=== PATIENT | female | born 1955 | race Caucasian/White ===

== ENCOUNTER 2018-06-10 22:54 | Inpatient (IN) | payer SELFPAY ==
[2018-06-11 00:41] LABS: Arterial Blood Carboxyhemoglob 0.9 % (0-1.5); Blood Gas Oxyhemoglobin 94.9 % (94-97); Blood O2 Saturation 96.8 % (92-98.5)
[2018-06-11 00:48] LABS: Absolute Lymphocytes (CBC) 1.2 K/uL (0.7-4.9); Absolute Monocytes 0.6 K/uL (0.1-1.3); Absolute Neutrophil 4.5 K/uL (1.8-8.0); Basophils % 0.4 % (0-1.3); Eosinophils % 0.5 % (0-4.4); Hematocrit 46.1 % (36.0-45.0); Lymphocytes % 18.4 % (15.3-44.8); MCH 27.5 pg (27.0-35.0); MCV 80.6 fL (80-100); MPV 8.8 fL (7.6-11.3); Monocytes % 8.9 % (3.3-12.3); RBC Red Blood Cell Count 5.72 M/uL (3.86-4.86)
[2018-06-11 00:52] LABS: Protime INR 1.2
[2018-06-11] MEDS ORDERED: NA CHLORIDE 0.9% 1,000 ML ONE ×2 (01:00→03:43)
[2018-06-11 01:05] LABS: ALT/SGPT 16 U/L (12-78); AST/SGOT 16 U/L (15-37); Albumin 3.2 g/dL (3.4-5.0); Alkaline Phosphatase 88 U/L (45-117); BUN Blood Urea Nitrogen 15 mg/dL (7-18); Bicarbonate 25 mmol/L (21-32); Bilirubin Direct 0.4 mg/dL (0-0.2); Bilirubin Total 1.3 mg/dL (0.2-1.0); CKMB Creatine Kinase MB < 1.0 ng/mL (0.3-3.6); Creatine Phosphokinase 22 U/L (26-192); Glucose Level 98 mg/dL (74-106); Lipase 200 U/L (73-393); Potassium 3.5 mmol/L (3.5-5.1); Protein, Total 7.9 g/dL (6.4-8.2); Sodium Level 137 mmol/L (136-145); Troponin (Emerg Dept Use Only) < 0.02 ng/mL (0.0-0.045)
[2018-06-11] MEDS ORDERED: ONDANSETRON 4 MG/2 ML VIAL ONE (02:01)
--- NOTE | 2018-06-11 05:19 | EDPHYS ---
Physician Documentation [facility] Name: Sherita Mcgovern Age: 63 yrs Sex: Female : 1955 Arrival Date: 06/10/2018 Time: 23:09 Bed 17 Private MD: ED Physician Anthony Moctezuma HPI: 06/11 01:41 This 63 yrs old Female presents to ER via EMS with unknown complaint. pkl 01:41 The patient presents to the emergency department with nausea, vomiting. Onset: The pkl symptoms/episode began/occurred 2 week(s) ago. Associated signs and symptoms: Pertinent positives: abdominal pain, dizziness, constipation and not eating well. The patient has not recently seen a physician, seen at [facility] ER 1 week ago for same complaints. Said she is not any better. Historical: - Allergies: 06/10 23:31 Levothyroxine Sodium; bb - Home Meds: 23:31 None [Active]; bb - PMHx: 23:31 borderline diabetes; bb - PSHx: 23:31 Gastric Bypass; varicose vein; Tubal ligation; Hernia repair; bb - Immunization history:: Adult Immunizations up to date. - Social history:: Smoking status: Patient/guardian denies using tobacco, Patient/guardian denies using alcohol, street drugs. - Ebola Screening: : No symptoms or risks identified at this time. ROS: 06/11 01:41 Eyes: Negative for injury, pain, redness, and discharge, ENT: Negative for injury, pkl pain, and discharge, Neck: Negative for injury, pain, and swelling, Cardiovascular: Negative for chest pain, palpitations, and edema, Respiratory: Negative for shortness of breath, cough, wheezing, and pleuritic chest pain. Abdomen/GI: Positive for nausea and vomiting, constipation. Back: Negative for acute changes. : Negative for urinary symptoms. MS/extremity: Negative for acute changes. Skin: Negative for rash. Neuro: Negative for altered mental status. Exam: 01:41 Head/Face: Normocephalic, atraumatic. Eyes: Pupils equal round and reactive to light, pkl extra-ocular motions intact. Lids and lashes normal. Conjunctiva and sclera are non-icteric and not injected. Cornea within normal limits. Periorbital areas with no swelling, redness, or edema. ENT: Nares patent. No nasal discharge, no septal abnormalities noted. Tympanic membranes are normal and external auditory canals are clear. Oropharynx with no redness, swelling, or masses, exudates, or evidence of obstruction, uvula midline. Mucous membranes moist. Neck: Trachea midline, no thyromegaly or masses palpated, and no cervical lymphadenopathy. Supple, full range of motion without nuchal rigidity, or vertebral point tenderness. No Meningismus. Chest/axilla: Normal chest wall appearance and motion. Nontender with no deformity. No lesions are appreciated. Cardiovascular: Regular rate and rhythm with a normal S1 and S2. No gallops, murmurs, or rubs. Normal PMI, no JVD. No pulse deficits. Respiratory: Lungs have equal breath sounds bilaterally, clear to auscultation and percussion. No rales, rhonchi or wheezes noted. No increased work of breathing, no retractions or nasal flaring. 01:41 Abdomen/GI: Bowel sounds: normal, Palpation: abdomen is soft and non-tender, in all quadrants. 01:41 Back: Exam negative for acute changes. 01:41 : Exam negative for acute changes. 01:41 Musculoskeletal/extremity: Exam is negative for acute changes. 01:41 Skin: Exam negative for rash. 01:41 Neuro: Orientation: is normal, Mentation: is normal, Memory: is normal, Cranial nerves: grossly normal, Motor: is normal. Vital Signs: 06/10 23:25 BP 147 / 105; Pulse 66; Resp 20 S; Temp 95.8(O); Pulse Ox 100% on R/A; Weight 147.42 kg bb (R); Height 5 ft. 8 in. (172.72 cm) (R); Pain 0/10; 06/11 00:00 BP 126 / 68; Pulse 60; Resp 18; Temp 98; Pulse Ox 98% ; ea 00:26 BP 132 / 81; Pulse 60; Resp 18; Pulse Ox 98% ; ea 01:30 BP 110 / 50; Pulse 60; Resp 18; Pulse Ox 97% on R/A; ea 02:43 BP 109 / 69; Pulse 58; Resp 20; Pulse Ox 97% ; ea 03:55 BP 110 / 62; Pulse 60; Resp 18; Temp 98; Pulse Ox 98% on R/A; ea 04:00 BP 117 / 73; Pulse 50; Resp 18; Pulse Ox 98% ; ea 06:30 BP 135 / 58; Pulse 57; Resp 18; Pulse Ox 98% on R/A; Pain 0/10; ea 07:52 BP 136 / 84; Pulse 62; Resp 18; Temp 98.5; Pulse Ox 99% on R/A; Pain 0/10; ch 06/10 23:25 Body Mass Index 49.42 (147.42 kg, 172.72 cm) bb MDM: 00:48 Patient medically screened. [facility] 05:16 Data reviewed: vital signs, nurses notes, lab test result(s), EKG, radiologic studies, pkl CT scan, plain films. 05:18 Patient medically screened. pkl 06/11 00:28 Order name: T\T\S snw 06/11 00:28 Order name: Urine Culture snw 06/11 00:28 Order name: ABG; Complete Time: 00:46 snw 06/11 00:28 Order name: Basic Metabolic Panel snw 06/11 00:28 Order name: Blood Culture Adult (2) snw 06/11 00:28 Order name: CBC with Diff; Complete Time: 01:35 snw 06/11 00:28 Order name: Ckmb snw 06/11 00:28 Order name: CPK snw 06/11 00:28 Order name: Lactate; Complete Time: 02:28 snw 06/11 00:28 Order name: LFT's snw 06/11 00:28 Order name: Lipase snw 06/11 00:28 Order name: Procalcitonin; Complete Time: 02:28 snw 06/11 00:28 Order name: Protime (+inr); Complete Time: 01:35 snw 06/11 00:28 Order name: Ptt, Activated; Complete Time: 01:35 snw 06/11 00:28 Order name: Troponin (emerg Dept Use Only); Complete Time: 01:35 snw 06/11 00:28 Order name: Urine Microscopic Only snw 06/11 00:28 Order name: Chest Single View XRAY snw 06/11 00:29 Order name: Type and Screen; Complete Time: 04:36 EDMS 06/11 00:29 Order name: Urine Culture EDMS 06/11 00:29 Order name: Basic Metabolic Panel; Complete Time: 01:35 EDMS 06/11 00:29 Order name: CKMB Creatine Kinase MB; Complete Time: 01:35 EDMS 06/11 00:29 Order name: Creatine Phosphokinase; Complete Time: 01:35 EDMS 06/11 00:29 Order name: Liver (Hepatic) Function; Complete Time: 01:35 EDMS 06/11 00:29 Order name: Lipase; Complete Time: 01:35 EDMS 06/11 01:39 Order name: CT Abd/Pelvis - W/Contrast pkl 06/11 01:39 Order name: CT Head Brain wo Cont pkl 06/11 04:38 Order name: Urine Dipstick--Ancillary (enter results) ms 06/11 05:29 Order name: ABO/RH no charge EDMS 06/11 06:46 Order name: CDIFF ms 06/11 00:28 Order name: Cardiac monitoring; Complete Time: 01:26 snw 06/11 00:28 Order name: EKG - Nurse/Tech; Complete Time: 02:31 snw 06/11 00:28 Order name: IV Saline Lock - Large Bore; Complete Time: 02:51 snw 06/11 00:28 Order name: Labs collected and sent; Complete Time: 01:25 snw 06/11 00:28 Order name: O2 Per Protocol; Complete Time: 01:25 snw 06/11 00:28 Order name: O2 Sat Monitoring; Complete Time: 01:25 snw 06/11 00:28 Order name: Urine Dipstick-Ancillary (obtain specimen); Complete Time: 05:25 snw 06/11 01:39 Order name: EKG; Complete Time: 01:39 pkl Administered Medications: 00:57 Drug: NS 0.9% (30 ml/kg) 30 ml/kg Route: IV; Rate: bolus; Site: left antecubital; ea 07:04 Follow up: Response: No adverse reaction; IV Status: Completed infusion; IV Intake: ea 1000ml 02:45 Drug: Zofran 4 mg Route: IVP; Site: right upper arm; ea 03:30 Follow up: Response: No adverse reaction; Marked relief of symptoms ea 02:52 Drug: NS 0.9% 1000 ml Route: IV; Rate: 100 ml/hr; Site: right upper arm; ea 07:03 Follow up: Response: No adverse reaction; IV Status: Infusion continued upon admission ea Disposition: 06/11/18 05:18 Hospitalization ordered by Mary Santana for Inpatient Admission. Preliminary diagnosis is Persistent dizziness and vomiting. Acute weight loss. - Bed requested for Telemetry/MedSurg (Inpatient). - Status is Inpatient Admission. - Condition is Stable. - Problem is new. - Symptoms are unchanged. UTI on Admission? No Signatures: Dispatcher [employer] EDMS Scarlet Bellamy RN RN ch Lewis, Kimberly, RN RN kl Anderson, Corey, MD MD cha Lam, Pin, MD MD pkl Therrien, Shelly, TETRYL SCREEN OPERATOR-C TETRYL SCREEN OPERATOR-Csnw Arianna Branch RN Johana Connell RN RN ea Corrections: (The following items were deleted from the chart) 01:26 00:28 Accucheck ordered. snw cc 05:24 00:28 Austin ordered. snw ea 06:30 05:18 Hospitalization Ordered by Mary Santana MD for Inpatient Admission. Preliminary diagnosis is Persistent dizziness and vomiting. Acute weight loss. Bed requested for Telemetry/MedSurg (Inpatient). Status is Inpatient Admission. Condition is Stable. Problem is new. Symptoms are unchanged. UTI on Admission? No. pkl 08:30 06:30 06/11/2018 05:18 Hospitalization Ordered by Mary Santana MD for Inpatient Admission. Preliminary diagnosis is Persistent dizziness and vomiting. Acute weight loss. Bed requested for Telemetry/MedSurg (Inpatient). Status is Inpatient Admission. Condition is Stable. Problem is new. Symptoms are unchanged. UTI on Admission? No. kl
--- NOTE | 2018-06-11 05:19 | ER ---
Nurse's Notes [facility] Name: Sherita Mcgovern Age: 63 yrs Sex: Female : 1955 Arrival Date: 06/10/2018 Time: 23:09 Bed 17 Private MD: Diagnosis: Persistent dizziness and vomiting. Acute weight loss Presentation: 06/10 23:09 Presenting complaint: EMS states: they were toned out for report of pt having vertigo bb with vomiting x 2 weeks pt has lost 38 pounds over the last 2 weeks has not been able to hold down food or drink. Transition of care: patient was not received from another setting of care. Onset of symptoms was May 24, 2018. Risk Assessment: Do you want to hurt yourself or someone else? Patient reports no desire to harm self or others. Initial Sepsis Screen: Does the patient meet any 2 criteria? No. Patient's initial sepsis screen is negative. Does the patient have a suspected source of infection? No. Patient's initial sepsis screen is negative. Care prior to arrival: None. 23:09 Method Of Arrival: EMS: [facility] bb 23:09 Acuity: ARCENIO 3 bb 23:34 Note family reports pt has been having slurred speech. bb Historical: - Allergies: 23:31 Levothyroxine Sodium; bb - Home Meds: 23:31 None [Active]; bb - PMHx: 23:31 borderline diabetes; bb - PSHx: 23:31 Gastric Bypass; varicose vein; Tubal ligation; Hernia repair; bb - Immunization history:: Adult Immunizations up to date. - Social history:: Smoking status: Patient/guardian denies using tobacco, Patient/guardian denies using alcohol, street drugs. - Ebola Screening: : No symptoms or risks identified at this time. Screenin/09 00:24 Abuse screen: Denies threats or abuse. Nutritional screening: No deficits noted. ea Tuberculosis screening: No symptoms or risk factors identified. Fall Risk None identified. Assessment: 06/10 23:15 General: Appears uncomfortable, Behavior is calm, cooperative, appropriate for age. ea Pain: Denies pain. Neuro: Level of Consciousness is awake, alert, obeys commands, Oriented to person, place, time, situation. Cardiovascular: Heart tones S1 S2 present Patient's skin is warm and dry. Respiratory: Airway is patent Respiratory effort is even, unlabored, Respiratory pattern is regular, symmetrical, Breath sounds are clear bilaterally. GI: Abdomen is non-distended, Bowel sounds present X 4 quads. Parent/caregiver reports the patient having nausea, vomiting. : No signs and/or symptoms were reported regarding the genitourinary system. Derm: Skin is pink, warm \T\ dry. 06/11 00:24 Reassessment: Family member came out to ask what is waiting for and was told for a ao provider. VALARIE Lam was notified. No provider has been assigned to patient. 02:00 Reassessment: Patient and/or family updated on plan of care and expected duration. Pain ea level reassessed. Pt IV infiltrated, IV discontinued, bleeding controlled, pressure dressing applied, catheter intact. Charge nurse attempting to obtain IV site at this time. 02:38 Reassessment: Patient and/or family updated on plan of care and expected duration. Pain ea level reassessed. Patient is alert, oriented x 3, equal unlabored respirations, skin warm/dry/pink. primer supervisor at bedside attempting to obtain IV access. 03:07 Reassessment: Patient is alert, oriented x 3, equal unlabored respirations, skin ea warm/dry/pink. CT notified of pt finishing oral contrast. 04:05 Reassessment: Patient and/or family updated on plan of care and expected duration. Pain ea level reassessed. Patient is alert, oriented x 3, equal unlabored respirations, skin warm/dry/pink. 07:52 Reassessment: Patient appears in no apparent distress at this time. Patient and/or ch family updated on plan of care and expected duration. Pain level reassessed. Patient is alert, oriented x 3, equal unlabored respirations, skin warm/dry/pink. Vital Signs: 06/10 23:25 BP 147 / 105; Pulse 66; Resp 20 S; Temp 95.8(O); Pulse Ox 100% on R/A; Weight 147.42 kg bb (R); Height 5 ft. 8 in. (172.72 cm) (R); Pain 0/10; 06/11 00:00 BP 126 / 68; Pulse 60; Resp 18; Temp 98; Pulse Ox 98% ; ea 00:26 BP 132 / 81; Pulse 60; Resp 18; Pulse Ox 98% ; ea 01:30 BP 110 / 50; Pulse 60; Resp 18; Pulse Ox 97% on R/A; ea 02:43 BP 109 / 69; Pulse 58; Resp 20; Pulse Ox 97% ; ea 03:55 BP 110 / 62; Pulse 60; Resp 18; Temp 98; Pulse Ox 98% on R/A; ea 04:00 BP 117 / 73; Pulse 50; Resp 18; Pulse Ox 98% ; ea 06:30 BP 135 / 58; Pulse 57; Resp 18; Pulse Ox 98% on R/A; Pain 0/10; ea 07:52 BP 136 / 84; Pulse 62; Resp 18; Temp 98.5; Pulse Ox 99% on R/A; Pain 0/10; ch 06/10 23:25 Body Mass Index 49.42 (147.42 kg, 172.72 cm) bb ED Course: 06/10 23:09 Patient arrived in ED. am2 23:25 Arm band placed on Patient placed in an exam room, on a stretcher, on pulse oximetry. bb Family accompanied patient. 23:27 Triage completed. bb 23:32 Johana Almeida, RN is Primary Nurse. ea 06/11 00:04 Inserted saline lock: 20 gauge in left antecubital area, using aseptic technique. ao ,using aseptic technique. Ultrasound guided IV Blood collected. 00:24 Patient has correct armband on for positive identification. Bed in low position. Call ea light in reach. Side rails up X 1. Child being held by parent. 01:06 X-ray completed. Portable x-ray completed in exam room. Patient tolerated procedure kw well. 01:07 Chest Single View XRAY In Process Unspecified. EDMS 01:27 Anthony Moctezuma MD is Attending Physician. pkl 01:53 Note: Patient unable to drink oral contrast at this time due to nausea. Patient's nurse kw1 to administer nausea medication and will advise when patient is able to drink contrast.. 01:56 Note: No IV at this time.. kw1 02:00 IV discontinued, intact, bleeding controlled, No redness/swelling at site. Pressure ea dressing applied. 02:13 Note: No IV and patient still unable to drink oral contrast at this time due to nausea..[id number] 02:38 Inserted saline lock: 24 gauge in right upper arm, using aseptic technique. By Elaina SERRANO. ea 03:21 Radiology exam delayed due to Patient finished oral contrast at approx 0310. Has been kw1 experiencing nausea and has not been able to drink the contrast. Will scan at approx. 0430. 04:26 Radiology exam delayed due to Patient currently in restroom. Will transport for CT exam kw1 as soon as she is able to travel. 04:[address] via wheelchair. kw1 05:04 CT Head Brain wo Cont In Process Unspecified. EDMS 05:07 CT Abd/Pelvis - W/Contrast In Process Unspecified. EDMS 05:07 CT completed. Patient tolerated procedure well. Patient moved back from CT. kw1 05:17 Mary Santana MD is Hospitalizing Provider. pkl 05:25 Urine Culture Sent. ea 06:54 No provider procedures requiring assistance completed. Patient admitted, IV remains in ea place. 07:04 Report given to Scarlet SERRANO. ea Administered Medications: 00:57 Drug: NS 0.9% (30 ml/kg) 30 ml/kg Route: IV; Rate: bolus; Site: left antecubital; ea 07:04 Follow up: Response: No adverse reaction; IV Status: Completed infusion; IV Intake: ea 1000ml 02:45 Drug: Zofran 4 mg Route: IVP; Site: right upper arm; ea 03:30 Follow up: Response: No adverse reaction; Marked relief of symptoms ea 02:52 Drug: NS 0.9% 1000 ml Route: IV; Rate: 100 ml/hr; Site: right upper arm; ea 07:03 Follow up: Response: No adverse reaction; IV Status: Infusion continued upon admission ea Intake: 07:04 IV: 1000ml; Total: 1000ml. ea Outcome: 05:18 Decision to Hospitalize by Provider. pkl 07:02 Instructed on the need for admit. ea 07:53 Admitted to Med/surg accompanied by [facility], with chart, Report called to ALYSIA 07:53 Condition: stable 08:30 Patient left the ED. Signatures: Dispatcher [employer] Scarlet Domingo, RN Anthony Nation ch, MD MD pkl Ballard, Brenda, RN RN bb Whitley, Kimberlee kw Ortiz, Alex RN Maren Garcia Elena, RN RN ea Wilhelm, Kimberly kw1 Ruby Dickinson [id number]
[2018-06-11 05:50] LABS: Urine Blood 2+ (NEG); Urine Glucose NEGATIVE (NEG); Urine Protein 1+ (NEG); Urine pH 6.5 (5.0-7.0)
[2018-06-11 05:51] LABS: Urine Culture Reflex Order NOT NEEDED; Urine Mucus 1+ /HPF (NONE SEEN)
[2018-06-11 05:52] LABS: Urine Bacteria 20-50 /HPF (<20); Urine RBC <5 /HPF (NONE SEEN)
[2018-06-11] MEDS ORDERED: ACETAMINOPHEN 500 MG TAB PO PRN (06:13)
--- NOTE | 2018-06-11 06:45 | P.HP ---
Certification for Inpatient Patient admitted to: Inpatient With expected LOS: >2 Midnights Patient will require the following post-hospital care: None Practitioner: I am a practitioner with admitting privileges, knowledge of patient current condition, hospital course, and medical plan of care. Services: Services provided to patient in accordance with Admission requirements found in Title 42 Section 412.3 of the Code of Federal Regulations Patient History Date of Service: 06/11/18 Reason for admission: Patient with abdominal pain and nausea and vomiting History of Present Illness: Patient is a 63-year-old female who presents to the hospital with abdominal pain , nausea and vomiting, along with constipation. Patient has been feeling poorly for the last 2 weeks. Patient's clinical symptoms have been gradually worsening. Patient had vertigo and was seen in the emergency room around 2 weeks ago while she was visiting with her family members. At that time, she was felt to have vertigo. She was given a prescription but she was unable to get it filled. She states that her debit card was not working. Since that time she has not felt any better. She has not had a bowel movement within that time. She has taken multiple laxatives. She is not able to keep liquids down he either. She will need to be admitted to the hospital for further workup. There has also been a greater than 30 lb weight loss over the last few weeks. This will also need to be investigated. - Past Medical/Surgical History -: Hypothyroidism -: Diabetes type 2 -: Gastric bypass surgery -: Bilateral tubal ligation -: Hernia repair -: Varicose vein - Family History Father Family History: Reviewed- Non-Contributory - Social History Smoking Status: Never smoker Alcohol use: No CD- Drugs: No Review of Systems 10-point ROS is otherwise unremarkable Physical Examination - Vital Signs Temperature: 98 F Blood Pressure: 140/80 Pulse: 80 Respirations: 18 Pulse Ox (%): 96 - Physical Exam General: Alert, In no apparent distress, Oriented x3 HEENT: Atraumatic, Normocephalic Neck: Supple, 2+ carotid pulse no bruit, JVD not distended, No Thyromegaly Respiratory: Clear to auscultation bilaterally, Normal air movement Cardiovascular: Normal pulses, Regular rate/rhythm, Normal S1 S2 Gastrointestinal: Normal bowel sounds, Hypoactive, Soft and benign, Non- distended Musculoskeletal: No clubbing, No swelling Integumentary: No rashes Neurological: Normal gait, Normal speech, Normal strength at 5/5 x4 extr, Normal tone, Sensation intact, Cranial nerves 3-12 intact Lymphatics: No axilla or inguinal lymphadenopathy - Studies Laboratory Data (last 24 hrs) 06/11/18 00:34: PT 14.2 H, INR 1.20, APTT 32.6 06/11/18 00:34: WBC 6.3, Hgb 15.7 H, Hct 46.1 H, Plt Count 211 06/11/18 00:34: Sodium 137, Potassium 3.5, BUN 15, Creatinine 0.70, Glucose 98, Total Bilirubin 1.3 H, AST 16, ALT 16, Alkaline Phosphatase 88, Lipase 200 Assessment & Plan - Problems (Diagnosis) (1) Vertigo Current Visit: Yes Status: Acute (2) Abdominal pain Current Visit: Yes Status: Acute (3) Nausea and vomiting Current Visit: Yes Status: Acute (4) Constipation Current Visit: Yes Status: Acute (5) Hypothyroidism Current Visit: Yes Status: Acute (6) Type 2 diabetes mellitus Current Visit: Yes Status: Acute - Plan 1. Continue with IV hydration 2. Continue with IV antibiotics 3. Continue with pain control 4. NPO 5. GI consultation; colonoscopy in the next few weeks 6. Serial H&H, and we will monitor CBC, BMP, LFTs and lipase along with electrolytes. 7. Will go ahead and start antiemetics and meclizine 8. CT of the abdomen did not reveal any abnormal findings except for constipation and cholelithiasis 9. GI and DVT prophylaxis Discharge Plan: Home Plan to discharge in: Greater than 2 days - Advance Directives Does patient have a Living Will: No Does patient have a Durable POA for Healthcare: No - Code Status/Comfort Care Code Status Assessed: Yes Code Status: Full Code Critical Care: No Time Spent Managing PTS Care (In Minutes): 50
[2018-06-11] MEDS: ONDANSETRON 4 MG/2 ML VIAL IV PRN ×2 (06:49→21:25)
[2018-06-11] MEDS ORDERED: NA CHLORIDE 0.9% 1,000 ML IV SCH (07:00)
--- NOTE | 2018-06-11 07:33 | EKG ---
Test Date: 2018-06-11 Test Time: 02:26:26 [employer] Liv[employer] Farmer: VINOD MEASUREMENT RESULTS: Intervals: Rate: 54 MS: 210 QRSD: 100 QT: 428 QTc: 405 Rodney: P: 20 MS: 210 QRS: -8 T: 19 INTERPRETIVE STATEMENTS: Sinus bradycardia with 1st degree AV block Otherwise normal ECG Compared to ECG 03/23/1999 02:10:00 First degree AV block now present Sinus rhythm no longer present Sinus arrhythmia no longer present Electronically Signed On 06-11-18 07:33:06 CDT by Andres Schuster
--- NOTE | 2018-06-11 08:58 | RAD REPORT ---
EXAM DESCRIPTION: RAD - Chest Single View - 06/11/2018 1:07 am CLINICAL HISTORY: Weight loss, shortness of breath, vomiting COMPARISON: None. TECHNIQUE: AP portable chest image was obtained 0053 hours . FINDINGS: Lungs are clear. Heart and vasculature are normal. No measurable pleural effusion and no p neumothorax. No acute bony abnormality seen. No acute aortic finding. No suspicion for mediastinal or hilar mass. IMPRESSION: No acute cardiopulmonary process.
[2018-06-11] MEDS: Levofloxacin500mg IV 500 MG/100 ML BAG IV SCH (09:02)
[2018-06-11] MEDS: METRONIDAZOLE 500mg IVPB 500 MG/100 ML BAG IV SCH ×2 (09:02→17:15)
[2018-06-11] MEDS: ENOXAPARIN 40 MG/0.4 ML SQ SCH (09:04)
--- NOTE | 2018-06-11 09:35 | RAD REPORT ---
EXAM DESCRIPTION: CT - Head Brain Wo Cont - 06/11/2018 6:30 am CLINICAL HISTORY: Vertigo, vomiting, dizziness A preliminary report was provided at the time of the study and reviewed prior to final report. COMPARISON: None. TECHNIQUE: Axial 5 mm thick images of the head were obtained without IV contrast. All CT scans are performed using dose optimization technique as appropriate and may include automated exposure control or mA/KV adjustment according to patient size. FINDINGS: No intracranial hemorrhage, mass, edema or shift of mid-line structures. No acute infarcti on changes seen. No abnormal extra-axial fluid collections. Ventricles are normal. Patient has little if any identifiable chronic ischemic change. Volume loss is minimal. Mastoid air cells and visualized portions of the paranasal sinuses are clear. No acute bony findings. IMPRESSION: Negative non-contrast CT head examination. If the patient has continued, unexplained symptoms, MR imaging could be performed to assess for CT oc cult lesions and to better evaluate the posterior fossa which has inherent CT limitation.
--- NOTE | 2018-06-11 09:38 | RAD REPORT ---
EXAM DESCRIPTION: CT - Abdomen Pelvis W Contrast - 06/11/2018 6:31 am CLINICAL HISTORY: Abdominal pain, vomiting A preliminary report was provided at the time of the study and reviewed prior to final report. COMPARISON: None. TECHNIQUE: Biphasic, helical CT imaging of the abdomen and pelvis was performed following 100 ml non -ionic IV contrast. Oral contrast was given. All CT scans are performed using dose optimization technique as appropriate and may include automated exposure control or mA/KV adjustment according to patient size. FINDINGS: No suspicious findings in the lung bases. The liver, spleen, and pancreas show no suspicious findings. Multiple gallstones are seen in a partia lly contracted gallbladder. No active gallbladder process suspected. No biliary tree dilatation. Symmetric renal function is seen with no hydronephrosis or suspicious renal mass. No pyelonephritis o r acute renal parenchymal process. No suspicious adrenal finding. Urinary bladder is mostly contracte d. Uterus and ovaries show no suspicious findings for age. No gastric dilatation or wall thickening. Gastric surgical changes are noted. No acute small bowel fi nding. No appendicitis. Sigmoid colon is redundant. There is a large amount of stool distending the r ectum. No other abnormal stool volume in the colon. No active colon process. No free air, free fluid or inflammatory stranding. No mass or bulky lymphadenopathy. The patient has a small 2 centimeter fat only umbilical hernia with a supraumbilical 5 centimeter fat filled hernia. Neck is 1.5 cm. No bowel involvement. Disc and bony degenerative changes are present. Scattered vascular calcifications seen. No acute bone finding. IMPRESSION: No bowel obstruction, free air or other surgically emergent finding. Cholelithiasis without active gallbladder or biliary tree finding suspected. Large stool volume distending the rectum. No acute colon finding otherwise noted.
[2018-06-11 15:03] LABS: T3 Free 1.45 pg/mL (2.18-3.98)
[2018-06-11 15:08] LABS: Thyroid Stimulating Hormone 7.37 uIU/mL (0.360-3.740)
[2018-06-11] MEDS: NA CHLORIDE 0.9% 1,000 ML IV SCH (17:14)
[2018-06-11] MEDS: MINERAL OIL ENEMA 135 ML BTL PR PRN (17:15)
--- NOTE | 2018-06-11 21:12 | CON ---
Date of Consultation: 06/11/2018 Brief History Of Present Illness: The patient is a 63-year-old female, who presents to [facility] with abdominal pain, nausea, and vomiting. She presented yesterday with the above-stated compl aints. She presented with constipation as well. She had been feeling poorly for the past 2-3 weeks and states that she has had a significant weight loss of approximately 20 pounds in the past 2-3 week s. She has had decreased p.o. intake due to nausea primarily. She has had decreased bowel movements . She has been seen by her family members and tried to deliver stool from her rectum digitally and w as unable to do so other than small amounts and had a family member attempt as well with some movemen t of solid material, but unable to complete the disimpaction completely at that time of stool. She a lso was told that she had a feeling of vertigo. She states she does not like physicians, and as such , has not followed up with 1 in a long period of time with respect to any medical problems that she c urrently has. She states she has tried multiple laxatives. She has been having some bowel function with the assistance of laxatives, but it has been primarily liquid with minimal solid material with h er bowel function. She says she states she continues to have difficulty with p.o. liquids, although she is able to tolerate ice chips while in the room without difficulty. Past Medical History: Significant for hypothyroidism, diabetes. She has had a "stomach stapling," s he is unsure of the specific type. Past Surgical History: Gastric bypass/stomach stapling, bilateral tubal ligation, hernia repair, and varicose vein surgery. Family History: Reviewed, noncontributory. Social History: Smoking, alcohol, or recreational drug use, all negative by report. Review of Systems: A 10-point review of systems other than HPI, denies. Physical Examination: Vital Signs: At the time examination, her BMI is approximately 49.4. Her vital signs were a blood p ressure 121/70, pulse is 54, respiratory rate 16, temperature 97.2. General: She is awake, alert, and oriented. Psychiatric: She is appropriate and conversive. HEENT: She is normocephalic. Her sclerae were anicteric, but she has cataracts in bilateral eyes an d a slight strabismus. Nasal turbinates are clear. Oropharynx is clear. Mucous membranes appear mo ist. She is morbidly obese in appearance. Chest: Normal expansion and excursion. Abdomen: Soft, nontender, nondistended. She has well-healed surgical scars in upper midline. Extremities: She has some edematous changes to the bilateral extremities and varicose veins. Laboratory Data: She had a laboratory exam, which reveals a white blood count of 6.3, hemoglobin 15. 7, hematocrit 46.1, platelet count is 211. Her neutrophils are normal at 71%. PT is 14.2, INR 1.2, PTT 32.6. Sodium 137, potassium 3.5, chloride 98, carbon dioxide 25, BUN 15, creatinine 0.7. Glucos e is 98, lactic acid 1.5, calcium 8.9, total bilirubin 1.3, direct component 0.4, AST 16, ALT 16, alk dariana phosphatase 88, CK-MB less than 1. Rapid troponin less than 0.02. Lipase was 200. UA shows a positive UTI with 3+ ketones, blood was 2+, nitrites were negative, leukocyte esterase 2+, white blo od cells greater than 50, bacteria 20/50, protein 1 positive. She had imaging performed as well whic h included a CT of the abdomen and pelvis, officially read as no bowel obstruction, free air, any imelda gically emergent finding, cholelithiasis without active gallbladder biliary tree findings, and large stool volume distending the rectum. No acute colonic finding otherwise. She had a CT of the head as well, which officially read as negative noncontrast head CT if the patient continues to have explain ed symptoms, MR could be performed to assess CT of occult lesions to better evaluate the posterior fo ssa which has inherent CT limitations. Assessment And Plan: This is a 63-year-old female who presents with fecal impaction and distended re ctum due to stool burden. 1.IV fluid hydration. 2.Clear liquid diet. 3.We will start with gentle enemas and progress to p.o. assistance with motility should this not imp rove. 4.Serial exams. 5.Increase overall hydration status. 6.Continue medical management. I will follow along with you. Thank you for this interesting consult. PRATEEK/WARREN Voice ID: [id number] Report ID: [id number]
[2018-06-11] MEDS: MAGNESIUM HYDROXIDE 8% 30 ML PO PRN (21:25)
[2018-06-11] MEDS: MECLIZINE HCL 12.5 MG TAB PO PRN (21:25)
[2018-06-12] MEDS: METRONIDAZOLE 500mg IVPB 500 MG/100 ML BAG IV SCH ×2 (00:42→09:33)
[2018-06-12] MEDS: NA CHLORIDE 0.9% 1,000 ML IV SCH ×3 (00:42→17:00)
[2018-06-12 06:47] LABS: ALT/SGPT 15 U/L (12-78); AST/SGOT 17 U/L (15-37); Albumin 2.9 g/dL (3.4-5.0); Alkaline Phosphatase 77 U/L (45-117); BUN Blood Urea Nitrogen 8 mg/dL (7-18); Bicarbonate 25 mmol/L (21-32); Bilirubin Total 0.9 mg/dL (0.2-1.0); Glucose Level 86 mg/dL (74-106); Magnesium 2.2 mg/dL (1.8-2.4); Phosphorus 2.9 mg/dL (2.5-4.9); Potassium 3.2 mmol/L (3.5-5.1); Protein, Total 6.8 g/dL (6.4-8.2); Sodium Level 143 mmol/L (136-145)
[2018-06-12] MEDS ORDERED: POTASSIUM CL SA 10 MEQ TAB PO ONE ×2 (07:00→17:00)
[2018-06-12 07:20] LABS: Absolute Lymphocytes (CBC) 1.6 K/uL (0.7-4.9); Absolute Monocytes 0.8 K/uL (0.1-1.3); Absolute Neutrophil 3.1 K/uL (1.8-8.0); Basophils % 0.6 % (0-1.3); Eosinophils % 1.3 % (0-4.4); Lymphocytes % 28.3 % (15.3-44.8); MCH 26.8 pg (27.0-35.0); MCV 81.7 fL (80-100); MPV 8.6 fL (7.6-11.3); Monocytes % 14.8 % (3.3-12.3); RBC Red Blood Cell Count 5.76 M/uL (3.86-4.86)
--- NOTE | 2018-06-12 08:52 | P.PN ---
Subjective Date of Service: 06/12/18 Chief Complaint: Patient with abdominal pain and nausea and vomiting Subjective: Improving (Patient feels better, had enema, passed some stool yesterday, tolerated ice chips well. no pain) Physical Examination - Vital Signs Temperature: 97.9 F Blood Pressure: 120/58 Pulse: 68 Respirations: 18 Pulse Ox (%): 96 - Physical Exam General: Alert, Oriented x3, Cooperative HEENT: Mucous membr. moist/pink Gastrointestinal: Soft and benign, Non-distended, No ascites, No tenderness, No masses, No rebound, No guarding Assessment And Plan - Current Problems (Diagnosis) (1) Constipation Current Visit: Yes Status: Acute Plan: - continue mineral oil enema today - advance to soft low residue diet - continue hydration - if tolerates diet will likely be ok for DC in AM - PT consult - [place]
[2018-06-12] MEDS: Levofloxacin500mg IV 500 MG/100 ML BAG IV SCH (09:33)
[2018-06-12] MEDS: ENOXAPARIN 40 MG/0.4 ML SQ SCH (09:34)
[2018-06-12] MEDS: MINERAL OIL ENEMA 135 ML BTL PR PRN (14:01)
[2018-06-12 18:46] LABS: Urine Appearance CLOUDY; Urine Blood 1+ (NEG); Urine Color YELLOW; Urine Glucose NEGATIVE (NEG); Urine Protein NEGATIVE (NEG); Urine Specific Gravity 1.015 (1.005-1.030); Urine Urobilinogen 0.2 mg/dL (0.2-1.0)
[2018-06-12 18:50] LABS: Urine Bilirubin NEGATIVE (NEG); Urine Microscopic Reflex ORDER UMIC
[2018-06-12 19:17] LABS: Urine Bacteria >50 /HPF (<20); Urine Culture Reflex Order NOT NEEDED; Urine Mucus MOD /HPF (NONE SEEN); Urine RBC <5 /HPF (NONE SEEN)
--- NOTE | 2018-06-12 19:50 | P.PN ---
Subjective Date of Service: 06/12/18 Chief Complaint: Patient with abdominal pain and nausea and vomiting Subjective: Improving Patient seen and examined at bedside. Daughter at bedside. Patient reports having 1 bowel movement this morning. Patient states she is still unable to eat or drink anything and she becomes nauseous and she smells hospital water. States her daughter is going to bring her bottled water from home and she will try that. Patient denies any abdominal pain, fevers chills, chest pain, shortness of breath. Patient not ambulating as she is scared that she is going to fall. She also refuses to walk with PT and was 1 of her family members is present. Physical Examination - Vital Signs Temperature: 97.6 F Blood Pressure: 126/60 Pulse: 59 Respirations: 20 Pulse Ox (%): 98 - Physical Exam General: Alert, Mild distress HEENT: Normocephalic Neck: JVD not distended Respiratory: Clear to auscultation bilaterally, Normal air movement Cardiovascular: Normal pulses, Regular rate/rhythm, Normal S1 S2 Gastrointestinal: Normal bowel sounds, Soft and benign, Non-distended, No tenderness, No rebound, No guarding Musculoskeletal: No clubbing, No swelling Neurological: Normal speech Assessment And Plan - Plan - Plan 1) constipation: Associated with nausea. Denies any abdominal pain Dr. Astorga consulted. Recommendations appreciated CT of the abdomen did not reveal any abnormal findings except for constipation and cholelithiasis Continue with pain control and anti emetics. Continue with mineral enemas Continue with IV hydration On full liquid diet, advance to soft as tolerated 2) hypothyroidism: Patient with a history of hyperthyroidism and has not been on any medications for the past 20 years. States she is allergic to levothyroxine for Synthroid and she refuses to take anything with pork. She is not interested in taking any thyroid medication at this time. Will defer to outpatient management. 3) diabetes mellitus type 2: Patient's blood sugars well controlled without any medications during this hospitalization Will continue with Accu-Cheks GI and DVT prophylaxis addressed Discharge Plan: Home Plan to discharge in: Greater than 2 days
[2018-06-12] MEDS: LIDOCAINE 5% PATCH TOP SCH (20:13)
[2018-06-13] MEDS: NA CHLORIDE 0.9% 1,000 ML IV SCH ×3 (01:00→18:25)
[2018-06-13 05:16] LABS: BUN Blood Urea Nitrogen 8 mg/dL (7-18); Bicarbonate 23 mmol/L (21-32); Glucose Level 86 mg/dL (74-106); Potassium 3.8 mmol/L (3.5-5.1); Sodium Level 140 mmol/L (136-145)
[2018-06-13] MEDS ORDERED: POTASSIUM 25 MEQ EFFERV TAB PO ONE (06:21)
[2018-06-13] MEDS: MECLIZINE HCL 12.5 MG TAB PO PRN (06:38)
[2018-06-13] MEDS: ENOXAPARIN 40 MG/0.4 ML SQ SCH (08:28)
[2018-06-13] MEDS: LIDOCAINE 5% PATCH TOP SCH (09:00)
[2018-06-13 11:27] LABS: Barbiturates NEGATIVE (NEGATIVE); Benzodiazepines NEGATIVE (NEGATIVE); Cocaine NEGATIVE (NEGATIVE); METHAMPHETAM NEGATIVE (NEGATIVE); Methadone NEGATIVE (NEGATIVE); Opiates NEGATIVE (NEGATIVE); Phencyclidine NEGATIVE (NEGATIVE); THC Cannibis NEGATIVE (NEGATIVE)
--- NOTE | 2018-06-13 12:47 | RAD REPORT ---
EXAM DESCRIPTION: MRI - Brain W/Wo Cont - 06/13/2018 11:48 am CLINICAL HISTORY: Dizziness and confusion COMPARISON: None TECHNIQUE: Axial, sagittal, and coronal magnetic images of the brain were obtained. 16 cc Magnevist administered intravenously. FINDINGS: No abnormal signal is present within the brain. Diffusion-weighted/ADC mapping does not reveal evidence of acute infarction. The ventricles are normal caliber. No abnormal enhancement within the brain is seen. An extra-axial fluid collection is not noted. The sinuses and mastoids are clear. IMPRESSION: Unremarkable brain MRI
--- NOTE | 2018-06-13 12:48 | RAD REPORT ---
EXAM DESCRIPTION: CT - Abdomen Pelvis W Contrast - 06/13/2018 12:10 pm CLINICAL HISTORY: Abdominal pain, vomiting, rapid weight loss over the last 2 weeks, history of cesar norberto bypass, tubal ligation and hernia repair COMPARISON: June 11 CT abdomen and pelvis TECHNIQUE: Biphasic, helical CT imaging of the abdomen and pelvis was performed following 100 ml non -ionic IV contrast. Oral contrast was given. All CT scans are performed using dose optimization technique as appropriate and may include automated exposure control or mA/KV adjustment according to patient size. FINDINGS: A small 5 mm nodule is present posterior gutter on the left. No remote imaging available t o establish long-term stability. No acute lung base finding. No pericardial thickening or effusion. The liver, spleen, and pancreas show no suspicious findings. Gallbladder is contracted. At least 1 mo derate-sized gallstone is seen in the fundus. No biliary tree dilatation. Symmetric renal function is seen with no hydronephrosis or suspicious renal mass. No pyelonephritis o r acute renal parenchymal process. No suspicious bladder finding. Uterus and ovaries show no suspicio us findings. No gastric dilatation or wall thickening. Gastric bypass surgical changes are noted. No active GI pro cess identifiable. No free air, free fluid or inflammatory stranding. No mass or bulky lymphadenopat hy. Patient has a 2 centimeter umbilical hernia as well as a 6 centimeter supraumbilical midline vent ral hernia. This contains only fat. The neck is 2 cm. No congestion or edema. No adrenal abnormality. Disc and bony degenerative changes are present. No pathologic bone process seen. IMPRESSION: CT abdomen and pelvis imaging shows no acute finding. No significant change from the Jun 9 study. Cholelithiasis again noted with no active component seen. Patient's ventral hernias show no active or new process since prior imaging.
--- NOTE | 2018-06-13 19:02 | P.PN ---
Subjective Date of Service: 06/13/18 Chief Complaint: Patient with abdominal pain and nausea and vomiting Patient seen and examined at bedside. No family at bedside. Patient states that she is feeling dizzy especially upon movement. She is still having nausea when she smells food or tries to eat. Patient denies any abdominal pain, fevers , chills, chest pain, shortness of breath. She is still not ambulating as she is scared that she is going to fall. Refuses to work with PT as she thinks that they will not be able to support her. Review of Systems 10-point ROS is otherwise unremarkable Physical Examination - Vital Signs Temperature: 98 F Blood Pressure: 133/62 Pulse: 57 Respirations: 20 Pulse Ox (%): 96 - Physical Exam General: Alert, In no apparent distress HEENT: Atraumatic, Other (cataract noted in right eye. ), EOMI Neck: Supple, JVD not distended Respiratory: Clear to auscultation bilaterally, Normal air movement Cardiovascular: Regular rate/rhythm, Normal S1 S2 Gastrointestinal: Normal bowel sounds, No tenderness Musculoskeletal: No tenderness Integumentary: No rashes Neurological: Normal speech, Normal tone, Sensation intact, Cranial nerves 3-12 intact, Normal affect Lymphatics: No axilla or inguinal lymphadenopathy - Studies Microbiology Data (last 24 hrs): 06/11/18 04:30 Catheterized Urine [place] Count - Final <10,000 CFU/ML. 06/11/18 04:30 Catheterized Urine - Final Escherichia Coli Medications List Reviewed: Yes Assessment And Plan - Plan - Plan 1) constipation: Associated with nausea. Denies any abdominal pain Dr. Astorga consulted. Recommendations appreciated CT of the abdomen did not reveal any abnormal findings except for constipation and cholelithiasis. Repeat CT today with no significant changes and no acute disease. Continue with pain control and anti emetics. Continue with mineral enemas Continue with IV hydration On full liquid diet, advance to soft as tolerated 2) hypothyroidism: Patient with a history of hyperthyroidism and has not been on any medications for the past 20 years. States she is allergic to levothyroxine for Synthroid and she refuses to take anything with pork. She is not interested in taking any thyroid medication at this time. Will defer to outpatient management. 3) diabetes mellitus type 2: Patient's blood sugars well controlled without any medications during this hospitalization Will continue with Accu-Cheks GI and DVT prophylaxis addressed Discharge Plan: Home Plan to discharge in: Greater than 2 days
[2018-06-13] MEDS: MAGNESIUM HYDROXIDE 8% 30 ML PO PRN (21:55)
[2018-06-14] MEDS: NA CHLORIDE 0.9% 1,000 ML IV SCH ×2 (01:38→09:00)
[2018-06-14 08:35] LABS: BUN Blood Urea Nitrogen 6 mg/dL (7-18); Bicarbonate 24 mmol/L (21-32); Glucose Level 90 mg/dL (74-106); Potassium 3.9 mmol/L (3.5-5.1); Sodium Level 141 mmol/L (136-145)
--- NOTE | 2018-06-14 08:48 | P.PN ---
Subjective Date of Service: 06/14/18 Chief Complaint: Patient with abdominal pain and nausea and vomiting Subjective: Improving (tolerting diet well, no emesis, multiple soft BMs, no pain) Physical Examination - Vital Signs Temperature: 97 F Blood Pressure: 130/61 Pulse: 56 Respirations: 16 Pulse Ox (%): 95 - Physical Exam General: Alert, Cooperative Gastrointestinal: Soft and benign, No tenderness, No masses, No rebound, No guarding - Studies Microbiology Data (last 24 hrs): 06/11/18 04:30 Catheterized Urine [place] Count - Final <10,000 CFU/ML. 06/11/18 04:30 Catheterized Urine - Final Escherichia Coli Medications List Reviewed: Yes Assessment And Plan - Current Problems (Diagnosis) (1) Constipation Onset Date: 06/12/18 Current Visit: Yes Status: Acute Plan: - soft low residue diet - if tolerates diet will likely be ok for DC - PT consulted - [place]
[2018-06-14] MEDS: LIDOCAINE 5% PATCH TOP SCH (09:00)
[2018-06-14] MEDS: ENOXAPARIN 40 MG/0.4 ML SQ SCH (10:00)
--- NOTE | 2018-06-14 13:12 | P.DS ---
Admission Date: 06/11/18 Discharge Date: 06/14/18 Disposition: ROUTINE DISCHARGE Discharge Condition: GOOD Reason for Admission: Patient with abdominal pain and nausea and vomiting Consultations: Dr. Astorga, General surgery Procedures: Reason for Exam: Abd pain;Constipation EXAM DESCRIPTION: CT - Abdomen Pelvis W Contrast - 06/11/2018 6:31 am CLINICAL HISTORY: Abdominal pain, vomiting A preliminary report was provided at the time of the study and reviewed prior to final report. COMPARISON: None. TECHNIQUE: Biphasic, helical CT imaging of the abdomen and pelvis was performed following 100 ml non-ionic IV contrast. Oral contrast was given. All CT scans are performed using dose optimization technique as appropriate and may include automated exposure control or mA/KV adjustment according to patient size. FINDINGS: No suspicious findings in the lung bases. The liver, spleen, and pancreas show no suspicious findings. Multiple gallstones are seen in a partially contracted gallbladder. No active gallbladder process suspected. No biliary tree dilatation. Symmetric renal function is seen with no hydronephrosis or suspicious renal mass. No pyelonephritis or acute renal parenchymal process. No suspicious adrenal finding. Urinary bladder is mostly contracted. Uterus and ovaries show no suspicious findings for age. No gastric dilatation or wall thickening. Gastric surgical changes are noted. No acute small bowel finding. No appendicitis. Sigmoid colon is redundant. There is a large amount of stool distending the rectum. No other abnormal stool volume in the colon. No active colon process. No free air, free fluid or inflammatory stranding. No mass or bulky lymphadenopathy. The patient has a small 2 centimeter fat only umbilical hernia with a supraumbilical 5 centimeter fat filled hernia. Neck is 1.5 cm. No bowel involvement. Disc and bony degenerative changes are present. Scattered vascular calcifications seen. No acute bone finding. IMPRESSION: No bowel obstruction, free air or other surgically emergent finding. Cholelithiasis without active gallbladder or biliary tree finding suspected. Large stool volume distending the rectum. No acute colon finding otherwise noted. Reason for Exam: abdominal pain and nv EXAM DESCRIPTION: CT - Abdomen Pelvis W Contrast - 06/13/2018 12:10 pm CLINICAL HISTORY: Abdominal pain, vomiting, rapid weight loss over the last 2 weeks, history of gastric bypass, tubal ligation and hernia repair COMPARISON: June 11 CT abdomen and pelvis TECHNIQUE: Biphasic, helical CT imaging of the abdomen and pelvis was performed following 100 ml non-ionic IV contrast. Oral contrast was given. All CT scans are performed using dose optimization technique as appropriate and may include automated exposure control or mA/KV adjustment according to patient size. FINDINGS: A small 5 mm nodule is present posterior gutter on the left. No remote imaging available to establish long-term stability. No acute lung base finding. No pericardial thickening or effusion. The liver, spleen, and pancreas show no suspicious findings. Gallbladder is contracted. At least 1 moderate-sized gallstone is seen in the fundus. No biliary tree dilatation. Symmetric renal function is seen with no hydronephrosis or suspicious renal mass. No pyelonephritis or acute renal parenchymal process. No suspicious bladder finding. Uterus and ovaries show no suspicious findings. No gastric dilatation or wall thickening. Gastric bypass surgical changes are noted. No active GI process identifiable. No free air, free fluid or inflammatory stranding. No mass or bulky lymphadenopathy. Patient has a 2 centimeter umbilical hernia as well as a 6 centimeter supraumbilical midline ventral hernia. This contains only fat. The neck is 2 cm. No congestion or edema. No adrenal abnormality. Disc and bony degenerative changes are present. No pathologic bone process seen. IMPRESSION: CT abdomen and pelvis imaging shows no acute finding. No significant change from the June 11 study. Cholelithiasis again noted with no active component seen. Patient's ventral hernias show no active or new process since prior imaging. Reason for Exam: intermit confusion EXAM DESCRIPTION: MRI - Brain W/Wo Cont - 06/13/2018 11:48 am CLINICAL HISTORY: Dizziness and confusion COMPARISON: None TECHNIQUE: Axial, sagittal, and coronal magnetic images of the brain were obtained. 16 cc Magnevist administered intravenously. FINDINGS: No abnormal signal is present within the brain. Diffusion-weighted/ADC mapping does not reveal evidence of acute infarction. The ventricles are normal caliber. No abnormal enhancement within the brain is seen. An extra-axial fluid collection is not noted. The sinuses and mastoids are clear. IMPRESSION: Unremarkable brain MRI Reason for Exam: DIZZINESS CT - Head Brain Wo Cont - 06/11/2018 6:30 am CLINICAL HISTORY: Vertigo, vomiting, dizziness A preliminary report was provided at the time of the study and reviewed prior to final report. COMPARISON: None. TECHNIQUE: Axial 5 mm thick images of the head were obtained without IV contrast. All CT scans are performed using dose optimization technique as appropriate and may include automated exposure control or mA/KV adjustment according to patient size. FINDINGS: No intracranial hemorrhage, mass, edema or shift of mid-line structures. No acute infarction changes seen. No abnormal extra-axial fluid collections. Ventricles are normal. Patient has little if any identifiable chronic ischemic change. Volume loss is minimal. Mastoid air cells and visualized portions of the paranasal sinuses are clear. No acute bony findings. IMPRESSION: Negative non-contrast CT head examination. If the patient has continued, unexplained symptoms, MR imaging could be performed to assess for CT occult lesions and to better evaluate the posterior fossa which has inherent CT limitation. Brief History of Present Illness: Patient is a 63-year-old female who presents to the hospital with abdominal pain , nausea and vomiting, along with constipation. Patient has been feeling poorly for the last 2 weeks. Patient's clinical symptoms have been gradually worsening. Patient also had complaints of vertigo and was seen in the emergency room around 2 weeks ago while she was visiting with her family members. She was given a prescription but she was unable to get it filled. She states that her debit card was not working. Since that time she has not felt any better. She has not had a bowel movement within that time. She has taken multiple laxatives. She is not able to keep liquids down he either. She will need to be admitted to the hospital for further workup. There has also been a greater than 30 lb weight loss over the last few weeks. This will also need to be investigated. Hospital Course: 1) Abdominal pain/Nausea/Constipation: Patient was admitted, IVF were started, nausea medication was given as needed. As there was no GI available, Dr. Almonte, General surgery was consulted. Patient received enemas in the hospital and was able to have a bowel movement ( not completely formed). Patient was started on a CLD, advanced to full liquids and to a soft diet. She was also started on empiric antibiotics for a suspected collitis and UTI, though IV antibiotics were stopped. no evidence that patient needs to be discharged on PO antibiotics. Patient was tolerating a diet at the time of discharge. initial CT scan did not show any acute abnormalities and a repeat CT scan also was normal. 2) Vertigo patient was diagnosed with vertigo 2 weeks ago and had not picked up her meclizine. This visit, patient still have some lingering dizziness, and an MRI was done, which was negative. Patient was educated on the disease and meclize Rx was sent to the pharmacy with instructions for patient to follow up with primary care Vital Signs/Physical Exam: Temp Pulse Resp BP Pulse Ox 97 F 56 16 130/61 95 06/14/18 08:48 06/14/18 08:48 06/14/18 08:48 06/14/18 08:48 06/14/18 08:48 General: Alert, In no apparent distress HEENT: Atraumatic, PERRLA, EOMI Neck: Supple, JVD not distended Respiratory: Clear to auscultation bilaterally, Normal air movement Cardiovascular: Regular rate/rhythm, Normal S1 S2 Gastrointestinal: Normal bowel sounds, No tenderness Musculoskeletal: No tenderness Integumentary: No rashes Neurological: Normal speech, Normal tone, Normal affect Lymphatics: No axilla or inguinal lymphadenopathy Laboratory Data at Discharge: WBC 5.7 K/uL (4.3-10.9) 06/12/18 05:51 Hgb 15.4 g/dL (12.0-15.0) H 06/12/18 05:51 Hct 47.0 % (36.0-45.0) H 06/12/18 05:51 Plt Count 143 K/uL (152-406) L D 06/12/18 05:51 PT 14.2 SECONDS (9.5-12.5) H 06/11/18 00:34 INR 1.20 06/11/18 00:34 APTT 32.6 SECONDS (24.3-36.9) 06/11/18 00:34 Sodium 141 mmol/L (136-145) 06/14/18 08:12 Potassium 3.9 mmol/L (3.5-5.1) 06/14/18 08:12 BUN 6 mg/dL (7-18) L 06/14/18 08:12 Creatinine 0.50 mg/dL (0.55-1.3) L 06/14/18 08:12 Glucose 90 mg/dL (74-106) 06/14/18 08:12 Phosphorus 2.9 mg/dL (2.5-4.9) 06/12/18 05:51 Magnesium 2.2 mg/dL (1.8-2.4) 06/12/18 05:51 Total Bilirubin 0.9 mg/dL (0.2-1.0) 06/12/18 05:51 AST 17 U/L (15-37) 06/12/18 05:51 ALT 15 U/L (12-78) 06/12/18 05:51 Alkaline Phosphatase 77 U/L (45-117) 06/12/18 05:51 Lipase 200 U/L (73-393) 06/11/18 00:34 Home Medications: Meclizine HCl [Antivert*] 25 mg PO Q6H PRN #30 tab 06/14/18 New Medications: Meclizine HCl [Antivert*] 25 mg PO Q6H PRN #30 tab PRN Reason: Dizziness Patient Discharge Instructions: Please follow up with your primary care physician in 1 week. Diet: High fiber diet Activity: Fall precautions Time spent managing pt's care (in minutes): 35
--- NOTE | 2018-06-14 14:28 | EKG ---
Test Date: 2018-06-14 Test Time: 02:15:24 [employer] Operator: SABINA MEASUREMENT RESULTS: Intervals: Rate: 69 HI: 194 QRSD: 102 QT: 390 QTc: 417 [employer]: P: 45 HI: 194 QRS: 5 T: 37 INTERPRETIVE STATEMENTS: Normal sinus rhythm Normal ECG Compared to ECG 06/11/2018 02:26:26 Sinus bradycardia no longer present First degree AV block no longer present Electronically Signed On 06-14-18 14:26:37 CDT by Andres Schuster
== END 2018-06-14 14:15 | disposition home or self-care (01) | DRG 392 ==
LOC: ER 22:54 → ERHOLD 06-11 06:03 → 2ND 06-11 08:15
PROVIDERS: ADMIT Hospitalist; ATTEND Family Medicine
DX: K59.00 Constipation, unspecified (principal); N39.0 Urinary tract infection, site not specified; E03.9 Hypothyroidism, unspecified; E11.9 Type 2 diabetes mellitus without complications; Z98.84 Bariatric surgery status; R42 Dizziness and giddiness; R11.2 Nausea with vomiting, unspecified; E66.01 Morbid (severe) obesity due to excess calories; K80.20 Calculus of gallbladder without cholecystitis without obstruction; K52.9 Noninfective gastroenteritis and colitis, unspecified
CPT/HCPCS: 36415; 70450; 70553; 71045; 74177; 80048; 80053; 80076; 80307; 81003; 81015; 82550; 82553; 82805; 83605; 83690; 83735; 84100; 84132; 84145; 84439; 84443; 84481; 84484; 85025; 85610; 85730; 86850; 86900; 86901; 87040; 87077; 87086; 87088; 87186; 87493; 93005; 96365; 96366; 96375; 97163; 99285; A9577; J1650; J2405; J7030; Q9967